=== PATIENT | male | born 1955 | race Hispanic/Latino ===

== ENCOUNTER 2023-11-19 10:53 | Outpatient (CLI) | payer OTHER ==
[2023-11-19 12:04] LABS: Hematocrit 42.1 % (38.8-50.0); Mean Corpuscular HGB CONC 33.3 g/dL (32.0-36.0); Mean Corpuscular Volume 93.3 fL (81.2-95.1); Mean Platelet Volume 10.4 fL (7.4-10.4); Platelet Count 174 10x3/uL (150-450); RBC Distribution Width 13.1 % (11.5-14.5); Red Blood Cell (RBC) Count 4.51 10x6/uL (4.32-5.72)
[2023-11-19 12:26] LABS: Anion Gap 13 mmol/L (10-20); BUN (Urea Nitrogen) 17 mg/dL (8.4-25.7); Calc. Creatinine Clearance 0 mL/min (70-130); Calcium 8.9 mg/dL (7.8-10.44); Carbon Dioxide 24 mmol/L (23-31); Chloride 108 mmol/L (98-107); Estimated GFR 92; Glucose 94 mg/dL (80-115); Sodium 141 mmol/L (136-145)
== END 2023-11-19 10:54 | disposition home or self-care (01) ==
LOC: CSHLAB 10:53
PROVIDERS: ATTEND Surgery
DX: Z01.818 Encounter for other preprocedural examination (principal); K42.9 Umbilical hernia without obstruction or gangrene
CPT/HCPCS: 80048; 85027; 93005; 93010

== ENCOUNTER 2023-11-22 05:44 | Day surgery (SDC) | payer OTHER ==
[2023-11-19 11:20] VITALS: BMI 31.1
[2023-11-22] MEDS ORDERED: Dexamethasone 4 mg/ml Vial ONE (06:25)
[2023-11-22] MEDS ORDERED: Rocuronium Bromide 10 MG/ML (10ML VIAL) ONE (06:25)
[2023-11-22] MEDS ORDERED: Lidocaine 1% PF 5 ML VIAL ONE (06:25)
[2023-11-22] MEDS ORDERED: SUGAMMADEX SODIUM 200 MG/2 ML VIAL ONE (06:25)
[2023-11-22] MEDS ORDERED: PROPOFOL 40 ML ONE (06:25)
[2023-11-22] MEDS ORDERED: Ondansetron PF 4 MG/2 ML Vial ONE (06:25)
[2023-11-22] MEDS ORDERED: Sevoflurane 250 ML INH ANEST BOTTLE ONE (06:28)
[2023-11-22] MEDS ORDERED: Dexmedetomidine 200 MCG/2 ML VIAL ONE (06:33)
[2023-11-22] MEDS ORDERED: Bupivacaine HCl 0.5%/Epinephrine 1:200,000/PF 30 ml Vial ONE (06:48)
[2023-11-22] MEDS ORDERED: CEFAZOLIN 2 GM VIAL ONE (06:48)
[2023-11-22] MEDS ORDERED: fentaNYL 50 mcg/mL 1 mL Vial ONE ×3 (07:25→09:16)
[2023-11-22] MEDS ORDERED: ePHEDrine Sulfate 50 MG/10 ML VIAL ONE (07:37)
[2023-11-22] MEDS ORDERED: HYDROcodone/Acetaminophen 5/325 mg Tablet ONE (09:42)
== END 2023-11-22 10:10 | disposition home or self-care (01) ==
LOC: CSHSDC 05:44
PROVIDERS: ATTEND Surgery
PROC: 0WUF4JZ Supplement Abdominal Wall with Synthetic Substitute, Percutaneous Endoscopic Approach (ICD-10-PCS; principal; 2023-11-22)
DX: K42.0 Umbilical hernia with obstruction, without gangrene (principal); I10 Essential (primary) hypertension; E11.9 Type 2 diabetes mellitus without complications; M19.90 Unspecified osteoarthritis, unspecified site; Z98.890 Other specified postprocedural states; Z79.899 Other long term (current) drug therapy
CPT/HCPCS: 36416; A6258; C1781; J1100; J2405; J2704; J3010

== ENCOUNTER 2024-11-25 08:59 | Day surgery (SDC) | payer OTHER ==
[2024-11-20 15:22] VITALS: BMI 31.4
[2024-11-25] MEDS ORDERED: Lidocaine 1% PF 5 ML VIAL ONE (10:42)
[2024-11-25] MEDS ORDERED: PROPOFOL 40 ML ONE (10:42)
[2024-11-25] MEDS ORDERED: PROPOFOL 20 ML ONE (10:56)
== END 2024-11-25 12:05 | disposition home or self-care (01) ==
LOC: CSHSDC 08:59
PROVIDERS: ATTEND Surgery
DX: Z12.11 Encounter for screening for malignant neoplasm of colon (principal); D12.2 Benign neoplasm of ascending colon; D36.9 Benign neoplasm, unspecified site; K64.8 Other hemorrhoids; I10 Essential (primary) hypertension; Z79.899 Other long term (current) drug therapy
CPT/HCPCS: 88305; J2704